=== PATIENT | female | born 2000 ===

== ENCOUNTER 2021-05-08 15:03 | Outpatient (CLI) | payer OTHER ==
[2021-05-08 17:48] LABS: BASOPHILS % (AUTO) 0.2 %; EOSINOPHILS # (AUTO) 0.1 10^3/uL (0.0-0.7); EOSINOPHILS % (AUTO) 1.8 %; HCT - HEMATOCRIT 42.6 % (37.0-47.0); HGB - HEMOGLOBIN 13.1 g/dL (12.0-16.0); LYMPHOCYTES # (AUTO) 1.3 10^3/uL (1.5-3.5); LYMPHOCYTES % (AUTO) 28.3 %; MEAN CORPUSCULAR HEMOGLOBIN 27.1 pg (27.0-31.0); MEAN CORPUSCULAR HGB CONC 30.8 g/dL (32.0-36.0); MEAN CORPUSCULAR VOLUME 88.2 fL (81.0-99.0); MEAN PLATELET VOLUME 10.3 fL (7.9-10.8); MONOCYTES # (AUTO) 0.5 10^3/uL (0.0-1.0); NEUTROPHILS # (AUTO) 2.7 10^3/uL (1.5-6.6); NEUTROPHILS % (AUTO) 59.5 %; PLT - PLATELET COUNT 267 10^3/uL (130-450); RED BLOOD COUNT 4.83 10^6/uL (4.20-5.40); RED CELL DISTRIBUTION WIDTH 12.6 % (12.0-15.0); WHITE BLOOD COUNT 4.5 x10^3/uL (4.8-10.8)
[2021-05-08 18:03] LABS: ALBUMIN 4.1 g/dL (3.2-5.5); ALBUMIN/GLOBULIN RATIO 1.2 (1.0-2.2); BILIRUBIN,TOTAL 0.6 mg/dL (0.2-1.0); CALCIUM 8.9 mg/dL (8.5-10.3); POTASSIUM 3.9 mmol/L (3.5-5.0); TOTAL PROTEIN 7.5 g/dL (6.7-8.2)
[2021-05-08 18:13] LABS: CREATININE 0.8 mg/dL (0.4-1.0)
[2021-05-08 18:22] LABS: HCG,QUALITATIVE BLOOD NEGATIVE
[2021-05-08 18:44] LABS: BILIRUBIN,URINE NEGATIVE (NEGATIVE); GLUCOSE, URINE (UA) NEGATIVE (NEGATIVE); KETONES,URINE (UA) NEGATIVE (NEGATIVE); LEUKOCYTE ESTERASE, URINE NEGATIVE (NEGATIVE); NITRITE,URINE NEGATIVE (NEGATIVE); OCCULT BLOOD,URINE NEGATIVE (NEGATIVE); PROTEIN,URINE NEGATIVE (NEGATIVE); UROBILINOGEN,URINE 0.2 (NORMAL) E.U./dL (NORMAL)
[2021-05-08 18:46] LABS: CLARITY,URINE CLEAR (CLEAR)
[2021-05-08 19:05] LABS: BACTERIA,URINE Rare /HPF (None Seen); RBC,URINE 0-5 /HPF (0-5); SQUAMOUS EPITHELIAL CELL,UR FEW Squamous (<= Few); WBC,URINE 0-3 /HPF (0-5)
== END 2021-05-08 23:59 | disposition home or self-care (01) ==
LOC: LAB.R 15:03
PROVIDERS: ATTEND Nurse Practitioner
DX: R10.9 Unspecified abdominal pain (principal)
CPT/HCPCS: 80053; 81001; 82150; 83690; 84703; 85025; 87086

== ENCOUNTER 2024-06-17 19:13 | Inpatient (IN) | payer OTHER ==
[2024-06-17] MEDS ORDERED: SODIUM CHLORIDE FLUSH 0.9% 10 ML SYRINGE IVP PRN (20:59)
[2024-06-17] MEDS ORDERED: miSOPROStoL 200 MCG TABLET BC PRN (20:59)
[2024-06-17] MEDS ORDERED: ONDANSETRON ODT 4 MG TABLET PO PRN (20:59)
[2024-06-17] MEDS ORDERED: NIFEdipine 10 MG CAPSULE PO PRN (20:59)
[2024-06-17] MEDS ORDERED: CARBOPROST TROMETHAMINE 250 MCG/ML VIAL IM PRN (20:59)
[2024-06-17] MEDS ORDERED: IBUPROFEN 600 MG TABLET PO PRN (20:59)
[2024-06-17] MEDS ORDERED: TERBUTALINE 1 MG/ML VIAL SUBQ PRN (20:59)
[2024-06-17] MEDS ORDERED: OXYTOCIN 10 UNIT/ML VIAL IM PRN (20:59)
[2024-06-17] MEDS ORDERED: hydrALAZINE INJ 20 MG/ML VIAL IVP PRN ×2 (20:59)
[2024-06-17] MEDS ORDERED: lidocaine 1% 20 ML MDV ID PRN (20:59)
[2024-06-17] MEDS ORDERED: diphenhydrAMINE INJ 50 MG/ML VIAL IVP PRN (20:59)
[2024-06-17] MEDS ORDERED: TRANEXAMIC ACID IN NACL 1,000 MG/100 ML BAG IV PRN (20:59)
[2024-06-17] MEDS ORDERED: METOCLOPRAMIDE 10 MG/2 ML VIAL IVP PRN (20:59)
[2024-06-17] MEDS ORDERED: miSOPROStoL 200 MCG TABLET PR PRN (20:59)
[2024-06-17] MEDS ORDERED: METHYLERGONOVINE 0.2 MG/ML VIAL IM PRN (20:59)
[2024-06-17] MEDS ORDERED: LABETALOL 20 MG/4 ML SYRINGE IVP PRN ×3 (20:59)
[2024-06-17] MEDS ORDERED: fentaNYL 100 MCG/2 ML VIAL IVP PRN (20:59)
[2024-06-17] MEDS ORDERED: OXYTOCIN/SODIUM CHLORIDE 500 ML IV PRN (20:59)
[2024-06-17] MEDS ORDERED: SODIUM CHLORIDE FLUSH 0.9% 10 ML SYRINGE IVP SCH (21:00)
[2024-06-17] MEDS: LACTATED RINGERS 1,000 ML IV PRN (21:20)
[2024-06-17 21:42] LABS: BASOPHILS % (AUTO) 0.2 %; EOSINOPHILS # (AUTO) 0.1 10^3/uL (0.0-0.7); EOSINOPHILS % (AUTO) 0.5 %; HCT - HEMATOCRIT 35.8 % (37.0-47.0); HGB - HEMOGLOBIN 11.1 g/dL (12.0-16.0); LYMPHOCYTES # (AUTO) 1.6 10^3/uL (1.5-3.5); LYMPHOCYTES % (AUTO) 12.1 %; MEAN CORPUSCULAR HEMOGLOBIN 26.1 pg (27.0-31.0); MEAN PLATELET VOLUME 9.5 fL (7.9-10.8); MONOCYTES # (AUTO) 1.3 10^3/uL (0.0-1.0); MONOCYTES % (AUTO) 9.8 %; NEUTROPHILS % (AUTO) 76.9 %; PLT - PLATELET COUNT 251 10^3/uL (130-450); RED BLOOD COUNT 4.26 10^6/uL (4.20-5.40); RED CELL DISTRIBUTION WIDTH 15.4 % (12.0-15.0)
[2024-06-17] MEDS ORDERED: ROPIVACAINE 0.2% 200 MG/100 ML BAG EP ONE (21:46)
[2024-06-17] MEDS ORDERED: LIDOCAINE 2%-EPI 1:100000 20 ML MDV ONE (21:50)
[2024-06-17 21:58] LABS: ALBUMIN 3.7 g/dL (3.2-5.5); ALBUMIN/GLOBULIN RATIO 1.2 (1.0-2.2); BILIRUBIN,TOTAL 0.2 mg/dL (0.2-1.0); CALCIUM 9.9 mg/dL (8.5-10.3); CREATININE 0.7 mg/dL (0.6-1.3); POTASSIUM 3.7 mmol/L (3.5-4.5); TOTAL PROTEIN 6.7 g/dL (6.4-8.9)
--- NOTE | 2024-06-17 22:00 | HISTORY & PHYSICAL EXAMINATION ---
Admit History - Visit Reason Visit Reason: Contractions - : 2 Parity: 0 Premature: 0 Ectopic: 0 : sab Care: positive: Other ([facility], [facility] is on divert) Risk/History: positive: Other (low risk . 1 hr glucose is 139. weight gain from 11 weeks is 48 pounds.) Complications This : positive: None - Mother's Labs Mother's Blood Type: positive: Unknown Mother's RH: positive: Unknown GBS: positive: Group B Step Negative Rubella Status: positive: Immune - Other Maternal History Other Maternal History: no medical problems only surgery is wisdom teeth. care with [facility] from 11 weeks. dating sure LMP within 1 week of 11 week scan. normal 20 week scan. bp today at visit mildly elevated, labs normal. 142/80, 144/80. no symptoms. membranes swept today. cervix 1/75/-3 1 sab very early to [place]. he is [employer]. She is [employer]. here with him and her mom. They are all from [place]. was anemic and took iron. normal today earlier. - HPI Current EDU 06/15/24 Gestation 40 Weeks and 2 Days 2 Para 0 Vital Signs Temperature 98.7 F 06/17/24 19:22 Temperature 98.7 F 06/17/24 19:27 Heart Rate 100 06/17/24 19:27 Respiratory Rate 14 06/17/24 19:27 Blood Pressure 137/82 H 06/17/24 19:27 O2 Saturation If not protocol: Oxygen Flow, liters/minute - NST Procedure NST Procedure Start Date 06/17/24 Start Time 19:18 Stop Time 19:45 Vibroacoustic Stimulation Used No Patient States Movement Yes Review of Systems - Constitutional Constitutional: denies: Fever - Cardiovascular Cariovascular: denies: Irregular heart rate - Respiratory Respiratory: denies: Cough - Gastrointestinal Gastrointestinal: denies: Vomiting - Neurological Neurological: denies: Headache Physical - Abdominal Exam Vital Signs: Temp Pulse Resp BP Pulse Ox O2 Flow Rate 98.7 F 100 14 137/82 H 06/17/24 19:27 06/17/24 19:27 06/17/24 19:27 06/17/24 19:27 Contraction Frequency (min/apart): q4 Contraction Intensity: positive: Moderate Uterine Resting Tone: positive: Soft - Monitoring Strip Review: positive: Category I - Presentation Presentation: positive: Vertex - Vaginal Exam Dilation (in cm): 4 Effacement (%): 90 Station: positive: -2 Cervical Position: positive: Midposition (per RN Jigna) - Speculum Exam Speculum Exam Performed: positive: No - Other Notes Labor Progress Note/Additional Text: came in to triage and changed from 3 to 4 cm. ready to stay and have her baby. wishes epidural. Plan for Labor - Plan For Labor I expect patient to be DC'd or transferred within 96 hours.: Yes Plan for Labor: term in spontaneous early active labor. epidural being placed now. gbs neg. only concerns are 48 pound weight gain and 1 hr glucose of 139. growth scan in April%ile per notes. only medications are vitamins. was not asked to take aspirin. gbs negative. will augment labor with pitocin as needed. I will check her and possible AROM when she is comfortable. anticipate sometime tomorrow.
[2024-06-17] MEDS ORDERED: SODIUM CHLORIDE 0.9% 10 ML VIAL IVP ONE ×2 (22:14→22:30)
[2024-06-17] MEDS ORDERED: fentaNYL 100 MCG/2 ML VIAL ONE (22:14)
[2024-06-17] MEDS ORDERED: NALOXONE 0.4 MG/ML VIAL IVP PRN (22:24)
[2024-06-17] MEDS ORDERED: ROPIVACAINE 0.2% 200 MG/100 ML BAG EP PRN (22:24)
[2024-06-17] MEDS ORDERED: ePHEDrine 50 MG/ML VIAL IVP PRN (22:24)
--- NOTE | 2024-06-17 22:26 | ANESTHESIA ---
Pre-Anesthesia VS, & Labs - Diagnosis active labor - Procedure vaginal delivery Vital Signs: Temp Pulse Resp BP Pulse Ox O2 Flow Rate 37.1 C 100 14 137/82 H 06/17/24 19:27 06/17/24 19:27 06/17/24 19:27 06/17/24 19:27 Height: 5 ft 7 in Weight (kg): 107.048 kg Body Mass Index: 36.9 BMI Classification: Obese - NPO Last Fluid Intake: clear liquids - Is Patient ?: Yes - Lab Results Current Lab Results: Laboratory Tests 06/17/24 21:20: Sodium 136, Potassium 3.7, Chloride 106, Carbon Dioxide 20 L, Anion Gap 10.0, BUN 9, Creatinine 0.7, Estimated GFR (MDRD) 104, Glucose 79, Calcium 9.9, Total Bilirubin 0.2, AST 19, ALT 15, Alkaline Phosphatase 163 H, Total Protein 6.7, Albumin 3.7, Globulin 3.0, Albumin/Globulin Ratio 1.2 06/17/24 21:20: WBC 13.0 H, RBC 4.26, Hgb 11.1 L, Hct 35.8 L, MCV 84.0, MCH 26.1 L, MCHC 31.0 L, RDW 15.4 H, Plt Count 251, MPV 9.5, Neut # (Auto) 10.0 H, Lymph # (Auto) 1.6, [place] # (Auto) 1.3 H, Eos # (Auto) 0.1, Baso # (Auto) 0.0, Absolute Nucleated RBC 0.00, Nucleated RBC % 0.0 Lab results reviewed: Yes Fish Bones: 06/17/24 21:20 06/17/24 21:20 Home Medications and Allergies Active Medications Acetaminophen (Acetaminophen 500 Mg Tablet) 1,000 mg PO Q8H PRN PRN Reason: Mild Pain or Fever>38C(100.4F) Carboprost Tromethamine (Carboprost Tromethamine 250 Mcg/Ml Vial) 250 mcg IM .ONCE PRN PRN Reason: Hemorrhage Diphenhydramine HCl (Diphenhydramine Inj 50 Mg/Ml Vial) 25 mg IVP Q6H PRN PRN Reason: Allergy Symptoms Famotidine (Famotidine 20 Mg/2 Ml Vial) 20 mg IVP DAILY RODRIGO Fentanyl (Fentanyl 100 Mcg/2 Ml Vial) 50 mcg IVP Q1H PRN PRN Reason: Severe Pain (score 7-10) Hydralazine HCl (Hydralazine Inj 20 Mg/Ml Vial) 5 - 10 mg IVP Q20M PRN; Protocol PRN Reason: SBP> or= 160 OR DBP> or= 110 Hydralazine HCl (Hydralazine Inj 20 Mg/Ml Vial) 10 mg IVP .ONCE PRN; Protocol PRN Reason: SBP> or= 160 OR DBP> or= 110 Lactated Ringer's (Lr) 500 mls @ 999 mls/hr IV PRN PRN PRN Reason: Abdominal Pain Last Admin: 06/17/24 21:20 Dose: 999 mls/hr Oxytocin/Sodium Chloride (Pitocin/Sodium Chloride) 500 mls @ 999 mls/hr IV PRN PRN; Protocol PRN Reason: POST- HEMORR PREVENTION Tranexamic Acid (Tranexamic 1,000 Mg/100ml-Nacl) 1,000 mg in 100 mls @ 600 mls/hr IV Q30M PRN PRN Reason: EBL >1200mL and within 3hr Ibuprofen (Ibuprofen 600 Mg Tablet) 600 mg PO Q8HR PRN PRN Reason: Moderate Pain (Level 4-6) Labetalol HCl (Labetalol 20 Mg/4 Ml Syringe) 20 - 80 mg IVP Q10M PRN; Protocol PRN Reason: SBP> or= 160 OR DBP> or= 110 Labetalol HCl (Labetalol 20 Mg/4 Ml Syringe) 20 mg IVP .ONCE PRN; Protocol PRN Reason: SBP> or= 160 OR DBP> or= 110 Labetalol HCl (Labetalol 20 Mg/4 Ml Syringe) 20 - 40 mg IVP Q10M PRN; Protocol PRN Reason: SBP> or= 160 OR DBP> or= 110 Lidocaine HCl (Lidocaine 1% 20 Ml Mdv) 20 ml ID .ONCE PRN PRN Reason: PERINEAL REPAIR Stop: 06/20/24 20:59 Methylergonovine Maleate (Methylergonovine 0.2 Mg/Ml Vial) 0.2 mg IM .ONCE PRN PRN Reason: Hemorrhage Metoclopramide HCl (Metoclopramide 10 Mg/2 Ml Vial) 5 mg IVP Q6HR PRN PRN Reason: Nausea / Vomiting Misoprostol (Misoprostol 200 Mcg Tablet) 600 mcg BC .ONCE PRN PRN Reason: Hemorrhage Misoprostol (Misoprostol 200 Mcg Tablet) 800 mcg TN .ONCE PRN PRN Reason: Hemorrhage Nifedipine (Nifedipine 10 Mg Capsule) 10 - 20 mg PO Q20M PRN; Protocol PRN Reason: SBP> or= 160 OR DBP> or= 110 Ondansetron HCl (Ondansetron Odt 4 Mg Tablet) 4 mg PO Q4HR PRN PRN Reason: Nausea / Vomiting Ondansetron HCl (Ondansetron 4 Mg/2 Ml Vial) 4 mg IVP PRN PRN PRN Reason: Nausea / Vomiting Oxytocin (Oxytocin 10 Unit/Ml Vial) 10 unit IM .ONCE PRN PRN Reason: Step One if no IV access. Sodium Chloride (Sodium Chloride Flush 0.9% 10 Ml Syringe) 10 ml IVP PRN PRN PRN Reason: NEEDED PER PROVIDER ORDERS Sodium Chloride (Sodium Chloride Flush 0.9% 10 Ml Syringe) 10 ml IVP Q8H RODRIGO Terbutaline Sulfate (Terbutaline 1 Mg/Ml Vial) 0.25 mg SUBQ .ONCE PRN PRN Reason: Tachystole Allergies/Adverse Reactions: Allergies Allergy/AdvReac Type Severity Reaction Status Date / Time No Known Drug Allergies Allergy Verified 06/17/24 22:25 Anes History & Medical History - Anesthetic History Family history of Anesthesia Complications: Denies Family history of Malignant Hyperthermia: Denies - Medical History Cardiovascular: reports: None Pulmonary: reports: None Gastrointestinal: reports: None Urinary: reports: None Neuro: reports: None Musculoskeletal: reports: Scoliosis Endocrine/Autoimmune: reports: None Blood Disorders: reports: None Skin: reports: None Smoking Status: Never smoker Psychosocial: reports: No issues indicated History of Cancer?: No - Obstetrical History : 2 Parity: 0 Events: reports: Other (low risk . 1 hr glucose is 139. weight gain from 11 weeks is 48 pounds.) Complications: reports: None Exam General: Alert, Oriented x3, Cooperative, No acute distress Dental: WNL Mouth Openin Fingerbreadth Neck Mobility: Normal Mallampati classification: II Thyromental Distance: 4-6 cm Mental/Cognitive Status: Alert/Oriented X3, Normal for patient Plan Anesthesia Type: Epidural Consent for Procedure(s) Verified and Reviewed: Yes Code Status: Attempt Resuscitation ASA classification: 2-Mild systemic disease Is this case an emergency?: No
--- NOTE | 2024-06-17 22:52 | PROVIDER PROGRESS NOTE ---
Labor Progress Note - Uterine Monitoring Uterine Monitoring Mode: positive: External toco Contraction Frequency (min/apart): q3 Contraction Intensity: positive: Moderate Uterine Resting Tone: positive: Soft - Monitoring Monitor Mode: positive: External ultrasound Heart Rate Variability: positive: Moderate (6-25 bmp) Accelerations: positive: Present, 15x15 Decelerations: positive: None Strip Review: positive: Category I - Vaginal Exam Dilation (in cm): 6 Effacement (%): 100 Station: -1 Cervical Position: Midposition - Labor Progress Note Labor Progress Note/Additional Text: comfortable with epidural now. seems her water is broken and maybe was leaking when she came in. not clear. Ultrasound done to confirm baby is vertex. she is and occiput transverse. vaginal opening on the small side but overall pelvis feels adequate. EFW 7.5 to 8 #. encouraged them to rest and hopefully will awaken ready to push.
[2024-06-17] MEDS: LACTATED RINGERS 1,000 ML IV SCH (23:00)
[2024-06-17 23:42] LABS: CREATININE,URINE 228.2 mg/dL; PROTEIN/CREATININE RATIO,URINE 0.4 (<=0.2)
[2024-06-18] MEDS: ONDANSETRON 4 MG/2 ML VIAL IVP PRN (01:53)
[2024-06-18] MEDS: ROPIVACAINE 0.2% 200 MG/100 ML BAG EP PRN (04:09)
[2024-06-18] MEDS ORDERED: fentaNYL 100 MCG/2 ML VIAL ONE (06:54)
[2024-06-18] MEDS ORDERED: LIDOCAINE-PF 2% 10 ML AMP SUBQ ONE (06:55)
[2024-06-18] MEDS ORDERED: ROPIVACAINE 0.2% 200 MG/100 ML BAG EP PRN (07:27)
--- NOTE | 2024-06-18 07:27 | ANESTHESIA PROCEDURE NOTE ---
Anesthesia Epidural Template - Patient Report Patient Reports: positive: Inadequate control - Plan Plan: positive: Other - Other Comments Other Comments: Patient uncomfortable with contractions. Epidural bolus given with 5ml 2% lidocaine and 100mcg fentanyl. Epidural settings changed to 10ml/hr with 6ml pcea q 10mins.
--- NOTE | 2024-06-18 08:38 | HISTORY & PHYSICAL EXAMINATION ---
HPI - Admitted From Admitted from: OB - History Obtained From Records Reviewed: RN notes reviewed History obtained from: Patient - History of Present Illness Pain/Problem Location Description: very painful with contractions. not able to get comfortable with epidural. HPI Comment/Other: labored all night and still has cervix at a rim. PMH/PSH - Past Medical History Cardiovascular: positive: None Respiratory: positive: None Neuro: positive: None Endocrine/Autoimmune: positive: None GI: positive: None : positive: None Musculoskeletal: positive: Scoliosis Derm: positive: None Social & Family Hx - Social History Smoking Status: Never smoker Meds/Allgy - Allergies Allergies/Adverse Reactions: Allergies Allergy/AdvReac Type Severity Reaction Status Date / Time No Known Drug Allergies Allergy Verified 06/17/24 22:25 Review of Systems - Constitutional Constitutional: reports: Fatigue - Other Findings Other Findings: very painful with contractions. no shortness of breath or chest pain Exam - Physical Exam Comments/Other: cervix with small lip of cervix more on right. pelvis feels very small. Results - Lab Results Fish Bones: 06/17/24 21:20 06/17/24 21:20 Other Lab Results: Lab Results x24hrs 06/17/24 06/17/24 06/17/24 Range/Units 23:00 22:10 21:20 WBC (4.8-10.8) x10^3/uL RBC (4.20-5.40) 10^6/uL Hgb (12.0-16.0) g/dL Hct (37.0-47.0) % MCV (81.0-99.0) fL MCH (27.0-31.0) pg MCHC (32.0-36.0) g/dL RDW (12.0-15.0) % Plt Count (130-450) 10^3/uL MPV (7.9-10.8) fL Neut # (Auto) (1.5-6.6) 10^3/uL Lymph # (Auto) (1.5-3.5) 10^3/uL Talbot # (Auto) (0.0-1.0) 10^3/uL Eos # (Auto) (0.0-0.7) 10^3/uL Baso # (Auto) (0.0-0.1) 10^3/uL Absolute Nucleated RBC x10^3/uL Nucleated RBC % /100WBC Sodium 136 (135-145) mmol/L Potassium 3.7 (3.5-4.5) mmol/L Chloride 106 (101-111) mmol/L Carbon Dioxide 20 L (21-32) mmol/L Anion Gap 10.0 (6-13) BUN 9 (6-20) mg/dL Creatinine 0.7 (0.6-1.3) mg/dL Estimated GFR (MDRD) 104 (>89) Glucose 79 (74-104) mg/dL Calcium 9.9 (8.5-10.3) mg/dL Total Bilirubin 0.2 (0.2-1.0) mg/dL AST 19 (10-42) IU/L ALT 15 (10-60) IU/L Alkaline Phosphatase 163 H (42-121) IU/L Total Protein 6.7 (6.4-8.9) g/dL Albumin 3.7 (3.2-5.5) g/dL Globulin 3.0 (2.1-4.2) g/dL Albumin/Globulin Ratio 1.2 (1.0-2.2) Urine Creatinine 228.2 mg/dL Ur Total Protein Timed 90 mg/dL Protein/Creatinin Ratio 0.4 H (<=0.2) Blood Type Blood Type Recheck A POSITIVE Antibody Screen 06/17/24 06/17/24 Range/Units 21:20 21:20 WBC 13.0 H (4.8-10.8) x10^3/uL RBC 4.26 (4.20-5.40) 10^6/uL Hgb 11.1 L (12.0-16.0) g/dL Hct 35.8 L (37.0-47.0) % MCV 84.0 (81.0-99.0) fL MCH 26.1 L (27.0-31.0) pg MCHC 31.0 L (32.0-36.0) g/dL RDW 15.4 H (12.0-15.0) % Plt Count 251 (130-450) 10^3/uL MPV 9.5 (7.9-10.8) fL Neut # (Auto) 10.0 H (1.5-6.6) 10^3/uL Lymph # (Auto) 1.6 (1.5-3.5) 10^3/uL Talbot # (Auto) 1.3 H (0.0-1.0) 10^3/uL Eos # (Auto) 0.1 (0.0-0.7) 10^3/uL Baso # (Auto) 0.0 (0.0-0.1) 10^3/uL Absolute Nucleated RBC 0.00 x10^3/uL Nucleated RBC % 0.0 /100WBC Sodium (135-145) mmol/L Potassium (3.5-4.5) mmol/L Chloride (101-111) mmol/L Carbon Dioxide (21-32) mmol/L Anion Gap (6-13) BUN (6-20) mg/dL Creatinine (0.6-1.3) mg/dL Estimated GFR (MDRD) (>89) Glucose (74-104) mg/dL Calcium (8.5-10.3) mg/dL Total Bilirubin (0.2-1.0) mg/dL AST (10-42) IU/L ALT (10-60) IU/L Alkaline Phosphatase (42-121) IU/L Total Protein (6.4-8.9) g/dL Albumin (3.2-5.5) g/dL Globulin (2.1-4.2) g/dL Albumin/Globulin Ratio (1.0-2.2) Urine Creatinine mg/dL Ur Total Protein Timed mg/dL Protein/Creatinin Ratio (<=0.2) Blood Type A POSITIVE Blood Type Recheck Antibody Screen NEGATIVE Impression/Plan - Problem List Problem List: failure to progress in labor. very painful so likely baby is not fitting thru her pelvis. could augment with pitocin or proceed with c section. Augmentation will cause more discomfort and we are having a very hard time controlling that. offered c section and patient agrees. does not want more pain. risks and benefits discussed. consents signed. OR crew called. baby looks great still. no rogers. ROM now since about 11:30 yesterday. no signs of infection or meconium.
[2024-06-18] MEDS ORDERED: AZITHROMYCIN INJ 500 MG in SODIUM CHLORIDE 0.9% 250 ML IV ONE (08:41)
[2024-06-18] MEDS ORDERED: ceFAZolin (2G) 2 GM in SODIUM CHLORIDE 0.9% MINIBAG 100 ML IV ONE (08:41)
[2024-06-18] MEDS ORDERED: FAMOTIDINE 20 MG/2 ML VIAL IVP SCH (09:00)
[2024-06-18] MEDS ORDERED: miSOPROStoL 200 MCG TABLET ONE (09:05)
[2024-06-18] MEDS ORDERED: METHYLERGONOVINE 0.2 MG/ML VIAL ONE (09:05)
[2024-06-18] MEDS ORDERED: CARBOPROST TROMETHAMINE 250 MCG/ML VIAL IM ONE (09:05)
[2024-06-18] MEDS ORDERED: NALOXONE 0.4 MG/ML VIAL IVP PRN (09:59)
[2024-06-18] MEDS ORDERED: LABETALOL 20 MG/4 ML SYRINGE IVP PRN ×3 (09:59)
[2024-06-18] MEDS ORDERED: CALCIUM CARBONATE CHEW 500 MG TABLET PO PRN (09:59)
[2024-06-18] MEDS ORDERED: hydrALAZINE INJ 20 MG/ML VIAL IVP PRN ×2 (09:59)
[2024-06-18] MEDS ORDERED: OXYTOCIN/SODIUM CHLORIDE 500 ML IV PRN (09:59)
[2024-06-18] MEDS ORDERED: NIFEdipine 10 MG CAPSULE PO PRN (09:59)
--- NOTE | 2024-06-18 10:07 | OPERATIVE REPORT ---
Operative Report - General Admit Date: 06/17/24 Procedure Date: 06/18/24 Planned Procedure: primary low transverse c section Pre-Op Diagnosis: Cephalopelvic disproportion, arrest of dilation Procedure Performed: LTCS Post Op Diagnosis: same - Procedure Note Anesthesia Technique: Regional block (TAP block post op), Spinal Pathology: none Estimated Blood Loss (mL): 500 Urine Output (mL): 100 (bloody when catheter placed) Indications: Did not progress in labor normally. 6 cm at 2300. still with a cervical lip at 0800. very painful with epidural, not able to get comfortable, like baby is wedged in her pelvis. recommend c section, or could augment with pitocin. Patient wishes c section. Findings: Live female infants with vertex wedged into pelvis in right occiput posterior position. head was flexed. uterus tubes and ovaries were normal. placenta appeared normal. Complications: none - Other Other Information/Narrative: Patient was brought to the OR where spinal was given as epidural was not working well. She was prepped and draped normally. vaginal prep done. Ancef 2 grams and azithromycin 500 mg given. left tilt. SCDs on and working. time out done. anesthesia tested and found to be adequate. Pfanensteil type incision made wtih the knife and carried through to the fascia. Fascia transected bilaterally. Fascia elevated inferiorly and then superiorly and rectus muscles disected off. peritoneum entered high in the abdomen to avoid the bladder. insicion stretched. Isacc retractor placed and rolled down. uterus was quite pulled up around baby's head. Incision was made at what I sensed was the lower uterine segment, not the cervix. The incision was opened digitally up and down. I tried to put my hand in to deliver the baby's head but it was so wedged into the pelvis that I could not get around it to deliver. I tried to pull out the baby's feet and that was very difficult as well. Finally I was able to deliver baby and she was not breathing and had poor tone. cord was cut long and handed off to peds team. Placenta came out just after baby. Uterus was cleared of clots and debris. The uterine incision was examined. it was just at the top of the cervix. It was closed with running locked 0 Monocryl suture. 2nd horizontal imbricating layer was placed. uterus contracted well. Fascia was closed with 0 Vicryl suture. SubQ was closed with 3-0 Monocryl and skin was closed with 4-0 Monocryl in subcuticular fashion. steristrips and bandage placed. uterus expressed. TAP blocks placed by anesthesia and patient brought back to her room in stable condition.
[2024-06-18] MEDS: LACTATED RINGERS 200 ML IV ONE (10:21)
--- NOTE | 2024-06-18 12:35 | ANESTHESIA POST OP EVALUATION ---
Anesthesia Post Eval - Post Anesthesia Eval Vitals: Last Vital Signs Temp 36.9 C 06/18/24 11:15 Pulse 114 H 06/18/24 11:45 Resp 16 06/18/24 11:45 BP 136/75 H 06/18/24 11:45 Pulse Ox 96 06/18/24 11:45 O2 Flow Rate CV Function Including HR & BP: Stable Pain Control: Satisfactory Nausea & Vomiting: Negative Mental Status: Baseline Respiratory Status: Airway Patent Hydration Status: Satisfactory Anesthesia Complications: None
--- NOTE | 2024-06-18 14:14 | PHARMACY PROGRESS NOTE ---
- Best Possible Medication History Admit Date and Time: 06/17/242113 Processed by: Pharmacy As the person ultimately responsible for medication therapy, providers are able to order a medication from an existing home medication list in [facility] via the "Reconcile Routine" prior to Confirmation of that medication by academic support specialist. Such practice is discouraged except when the physician, in their clinical judgment, deems that a medical need exists for a medication without regard to previous use.
[2024-06-18] MEDS: KETOROLAC 30 MG/ML VIAL IVP SCH (15:57)
[2024-06-18] MEDS: ACETAMINOPHEN 500 MG TABLET PO SCH (18:37)
--- NOTE | 2024-06-18 21:47 | PROVIDER PROGRESS NOTE ---
Progress Note Doing well. sitting up in bed. trying to breast feed baby. no complaints.
[2024-06-18] MEDS: DOCUSATE SODIUM 100 MG CAPSULE PO SCH (22:26)
[2024-06-18] MEDS: ENOXAPARIN 40 MG/0.4 ML SYRINGE SUBQ SCH (22:26)
[2024-06-19] MEDS: ACETAMINOPHEN 500 MG TABLET PO PRN (07:04)
[2024-06-19] MEDS: oxyCODONE 5 MG TABLET PO PRN (07:04)
[2024-06-19] MEDS: IBUPROFEN 600 MG TABLET PO SCH (07:05)
[2024-06-19 07:22] LABS: ALBUMIN 3.2 g/dL (3.2-5.5); ALBUMIN/GLOBULIN RATIO 1.3 (1.0-2.2); BILIRUBIN,TOTAL 0.2 mg/dL (0.2-1.0); CALCIUM 9.1 mg/dL (8.5-10.3); CREATININE 0.7 mg/dL (0.6-1.3); HCT - HEMATOCRIT 29.8 % (37.0-47.0); HGB - HEMOGLOBIN 9.4 g/dL (12.0-16.0); MEAN CORPUSCULAR HEMOGLOBIN 26.9 pg (27.0-31.0); MEAN CORPUSCULAR HGB CONC 31.5 g/dL (32.0-36.0); MEAN CORPUSCULAR VOLUME 85.1 fL (81.0-99.0); MEAN PLATELET VOLUME 9.5 fL (7.9-10.8); POTASSIUM 4.2 mmol/L (3.5-4.5); RED BLOOD COUNT 3.5 10^6/uL (4.20-5.40); TOTAL PROTEIN 5.7 g/dL (6.4-8.9); WHITE BLOOD COUNT 17.2 x10^3/uL (4.8-10.8)
[2024-06-19] MEDS: SIMETHICONE CHEW 80 MG TABLET PO PRN (09:46)
[2024-06-19] MEDS: IRON DEXTRAN 1,000 MG in SODIUM CHLORIDE 0.9% 250 ML IV ONE (12:21)
[2024-06-19] MEDS: PRENATAL VITAMIN TABLET PO SCH (16:34)
--- NOTE | 2024-06-19 18:41 | PROVIDER PROGRESS NOTE ---
Subjective - General Admit Date: 06/17/24 Procedure Date: 06/18/24 Post Op Days: 1 Procedure Performed: low transverse c section - Review of Systems Wound/Incisions: positive: Healing well, Drainage (small amount now seems to have stopped). negative: Erythema General: positive: No symptoms Pulmonary: negative: Shortness of breath Cardiovascular: positive: No symptoms Gastrointestinal: positive: No symptoms Genitourinary: positive: No symptoms Psychiatric: positive: No symptoms Objective - Patient Data Vital Signs: Vital Signs x48h Temp Pulse Resp BP Pulse Ox 06/19/24 12:51 97.7 F 83 16 113/69 98 Weight: Weight 06/17/24 06/18/24 06/19/24 23:59 23:59 23:59 Weight (kg) 107.048 kg 107.048 kg Intake & Output: Intake and Output Totals x24h 06/17/24 06/18/24 06/19/24 23:59 23:59 23:59 Intake Total 500 2849 720 Output Total 1845 650 Balance 500 1004 70 - Lab Results Lab Results: 06/19/24 07:02 06/19/24 07:02 Other Lab Results: Lab Results x24hrs 06/19/24 06/19/24 Range/Units 07:02 07:02 WBC 17.2 H (4.8-10.8) x10^3/uL RBC 3.50 L (4.20-5.40) 10^6/uL Hgb 9.4 L (12.0-16.0) g/dL Hct 29.8 L (37.0-47.0) % MCV 85.1 (81.0-99.0) fL MCH 26.9 L (27.0-31.0) pg MCHC 31.5 L (32.0-36.0) g/dL RDW 16.0 H (12.0-15.0) % Plt Count 227 (130-450) 10^3/uL MPV 9.5 (7.9-10.8) fL Sodium 138 (135-145) mmol/L Potassium 4.2 (3.5-4.5) mmol/L Chloride 109 (101-111) mmol/L Carbon Dioxide 23 (21-32) mmol/L Anion Gap 6.0 (6-13) BUN 10 (6-20) mg/dL Creatinine 0.7 (0.6-1.3) mg/dL Estimated GFR (MDRD) 104 (>89) Glucose 80 (74-104) mg/dL Calcium 9.1 (8.5-10.3) mg/dL Total Bilirubin 0.2 (0.2-1.0) mg/dL AST 20 (10-42) IU/L ALT 15 (10-60) IU/L Alkaline Phosphatase 138 H (42-121) IU/L Total Protein 5.7 L (6.4-8.9) g/dL Albumin 3.2 (3.2-5.5) g/dL Globulin 2.5 (2.1-4.2) g/dL Albumin/Globulin Ratio 1.3 (1.0-2.2) - Current Medications Current Medications: Current Medications Generic Name Dose Route Start Last Admin Trade Name Freq PRN Reason Stop Dose Admin Acetaminophen 1,000 mg 06/17/24 20:59 06/19/24 07:04 Acetaminophen 500 Mg Tablet PO 1,000 mg Q8H PRN Administration Mild Pain or Fever>38C(100.4F) Acetaminophen 1,000 mg 06/18/24 10:00 06/19/24 16:35 Acetaminophen 500 Mg Tablet PO 1,000 mg Q8H RODRIGO Administration Docusate Sodium 200 mg 06/18/24 21:00 06/19/24 12:41 Docusate Sodium 100 Mg Capsule PO 200 mg BID RODRIGO Administration Enoxaparin Sodium 40 mg 06/18/24 23:00 06/18/24 22:26 Enoxaparin 40 Mg/0.4 Ml Syringe SUBQ 40 mg DAILY RODRIGO Administration Lactated Ringer's 500 mls @ 999 mls/hr 06/17/24 20:59 06/17/24 22:26 Lr IV Infused PRN PRN Infusion Abdominal Pain Lactated Ringer's 1,000 mls @ 125 mls/hr 06/17/24 23:00 06/18/24 14:16 Lr IV Infused .Q8H RODRIGO Infusion Ibuprofen 600 mg 06/19/24 06:00 06/19/24 18:26 Ibuprofen 600 Mg Tablet PO 600 mg Q6HR RODRIGO Administration Ondansetron HCl 4 mg 06/17/24 20:59 06/18/24 01:53 Ondansetron 4 Mg/2 Ml Vial IVP 4 mg PRN PRN Administration Nausea / Vomiting Oxycodone HCl 5 mg 06/18/24 09:59 06/19/24 12:41 Oxycodone 5 Mg Tablet PO 5 mg Q4HR PRN Administration Severe Pain 6 -10 Multivit/Folic Acid/Iron 1 tab 06/19/24 12:00 06/19/24 16:34 Vitamin Tablet PO 1 tab Q48H RODRIGO Administration Simethicone 80 mg 06/18/24 09:59 06/19/24 09:46 Simethicone Chew 80 Mg Tablet PO 80 mg TID PRN Administration Gas - Physical Exam Wound/Incisions: positive: Healing well General Appearance: positive: No acute distress Respiratory: positive: No respiratory distress Cardiovascular: positive: Regular rate & rhythm Abdomen: positive: Non-tender Extremities: positive: Non-tender, Pedal edema (small) Neurologic/Psychiatric: positive: Oriented x3 Impression/Plan - Problem List Problem List: s/p c section for CPD. difficult delivery. baby and mom doing well. walked, took shower. breast feeding. no concern. Acute post op anemia at 29%. 1 dose of Iv iron given 1000 mg. discharge tomorrow.
[2024-06-20 08:30] VITALS: BP 123/70; O2SAT 99
[2024-06-20] MEDS ORDERED: FERROUS SULFATE 325 MG TABLET PO SCH (09:00)
--- NOTE | 2024-06-20 09:52 | Discharge Plan ---
Discharge Plan Problem Reviewed?: Yes Disposition: Home, Self Care Condition: Good Diet: Regular Activity Restrictions: Activity as Tolerated Shower Restrictions: No Driving Restrictions: Yes (Drive when comfortable and not taking pain medications) Weight Bearing: Full Weight Instruction Topics: , Depression , No Smoking: If you smoke, Please STOP! Call for help. Follow-up with: Belinda Vo MD [Provider Admit Priv/Credential] -
--- NOTE | 2024-06-20 11:10 | DISCHARGE SUMMARY ---
"Discharge Summary Admit Date: 06/17/24 Discharge Date: 06/20/24 Discharging Provider: Renetta Dorman DO Code Status: Attempt Resuscitation Condition at Discharge: Good Discharge Disposition: 01 Home, Self Care Discharge Facility Name: [facility] - DIAGNOSES Admission Diagnoses: 23yo with IUP at 40.2w Preeclampsia - HPI History of Present Illness: 23yo at 40.2w admitted 06/17/24 for active labor, also preeclampsia. - CONSULTS | PROCEDURES Procedures: Primary section - HOSPITAL COURSE Hospital Course: 23yo at 40.2w admitted 06/17/24 for active labor, also preeclampsia. She progressed to 9cm but ultimately PCD for failure to dilate, CPD. Preeclampsia diagnosed on admission with BP 140/90s and PCR 0.4. She did not require antihypertensives and this improved after delivery. See operative report for details. She is recovering appropriately. Appropriate lochia. Ambulating, voiding. Tolerating regular diet. . Mood is good. Denies headache, visual changes. care at , uncomplicated. and postoperative care reviewed. Follow up this week for BP check. - ALLERGIES Allergies/Adverse Reactions: Allergies Allergy/AdvReac Type Severity Reaction Status Date / Time No Known Drug Allergies Allergy Verified 06/17/24 22:25 - MEDICATIONS Home Medications: Ambulatory Orders Medication Instructions Recorded Confirmed Ferrous Sulfate [Feosol] 325 mg PO UD 06/18/24 06/18/24 Vit No.180/Iron/Folic 1 tab PO UD 06/18/24 06/18/24 [ Plus Vitamin-Mineral] - PHYSICAL EXAM AT DISCHARGE General Appearance: positive: No acute distress Eyes Bilateral: positive: EOMI Neck: positive: Nml inspection Respiratory: positive: No respiratory distress Abdomen: positive: Other (Incision with steri strips, c/d/i) Skin: positive: Color nml Extremities: positive: Non-tender Neurologic/Psychiatric: positive: Oriented x3 - LABS Result Diagrams: 06/19/24 07:02 06/19/24 07:02 - QUALITY (Female Hip Fx Only) Was patient sent home on osteoporosis medication?: No - FOLLOW UP Follow Up: By 06/24 for BP check - TIME SPENT Time Spent in Discharge (Minutes): 25"
--- NOTE | 2024-06-20 11:30 | Labor Flowsheet ---
Labor Flowsheet Datetime Report Generated by CPN: 06/20/2024 11:30 Datetime: 06/18/2024 20:15 I/O Interventions: Jacob Discontinued (Annotations: 300ml clear yellow ) Datetime: 06/18/2024 08:39 Frequency (min): x1 Duration (sec): 60 Datetime: 06/18/2024 08:31 VITAL SIGNS NBP Sys/Dorothy/Mean (mmHg): 160 : 88 : 105 Pulse: 121 LaborFlag: Labor Datetime: 06/18/2024 08:21 Communication Comments: EFM adjusted during pre-op wipe completion. Datetime: 06/18/2024 08:04 Comments: pushing started Datetime: 06/18/2024 07:35 Monitor Interventions for UA: [place] Adjusted Datetime: 06/18/2024 07:34 VAGINAL EXAM Dilatation (cm): 10.0 Effacement (%): 100 Station: 0 Exam by: Herlinda Jerezlan, RN COMMUNICATION Communication: Call/Page Placed to Provider Provider Notified (Name): Dr. Vo Notification Reason: Labor Status Datetime: 06/18/2024 07:30 UTERINE ACTIVITY Monitor Mode: External Quality: Moderate Pattern: Normal: <= 5 Contractions in 10 Minutes Resting Tone (Palpate): Relaxed Contraction Comments: UTD contraction frequency and duration; RN adjusting TOCO for clear monitorin g. ASSESSMENT A Monitor Mode: External US FHR Baseline Rate : 145 Variability: Moderate 6-25 bpm Accelerations: 15X15 Decelerations: None Category: Category I Datetime: 06/18/2024 07:12 Temperature (C): 37.2 Datetime: 06/18/2024 06:58 Anesthesia Comments: COLLIERY CLERK at bedside for epidural bolus Datetime: 06/18/2024 06:30 Respirations: 16 Pain Assessment Comments: COLLIERY CLERK aware of breakthrough pain, en route to bedside to asses Datetime: 06/18/2024 06:14 PATIENT CARE Patient Position/Activity: Right Lateral Patient Care Comments: peanut, knees together/feet out Datetime: 06/18/2024 06:06 Nurse Giving Report: Jigna H RN Datetime: 06/18/2024 05:45 Pain Coping: Sleeping Datetime: 06/18/2024 05:27 Hygiene: Ana Care; Underpad Changed; Peripad Changed Datetime: 06/18/2024 04:30 FHR Baseline Changes: No Baseline Change Actions for Decelerations: Side to Side; Provider Notified Datetime: 06/18/2024 04:11 Vaginal Bleeding: Normal Show Datetime: 06/18/2024 04:00 Temperature Route: Oral Datetime: 06/18/2024 03:28 Monitor Interventions for FHR: Ultrasound Adjusted Datetime: 06/18/2024 02:15 Pain Presence: None/Denies Datetime: 06/18/2024 01:16 PAIN Pain Scale: 0 Datetime: 06/18/2024 00:00 ASSESSMENT B Category: Category I Datetime: 06/17/2024 22:50 Membranes Rupture Method: Spontaneous Amniotic Fluid Color: Clear Amniotic Fluid Amount: Small Amniotic Fluid Odor: Normal Membrane Comments: SROM 1130 06/17 Datetime: 06/17/2024 22:30 SpO2 (%): 100 Datetime: 06/17/2024 22:05 ANESTHESIA Epidural Procedure: Completed Datetime: 06/17/2024 21:59 PROCEDURE TIME OUT Procedure Verify: Correct Patient Identity; Correct Side and Site are Marked; Accurate Procedure Co nsent Form; Agreement on Procedure to be Done; Correct Patient Position; Relevant Images and Results are Properly Labeled and Displayed; Addressed Need to Administer Antibiotics or Fluids for Irrigation ; Safety Precautions Based on Patient History or Medication Use Datetime: 06/17/2024 21:16 Stage of : Labor Datetime: 06/17/2024 20:13 Membranes Ruptured Date/Time: 06/17/2024 11:30 Datetime: 06/17/2024 19:46 Cervix, Consistency: Moderate Cervix, Position: Midposition Datetime: 06/17/2024 19:30 MATERNAL ASSESSMENT Level of Consciousness: Alert DTR's/Clonus: DTRs 1+; No Clonus Headache: Denies Breath Sounds, Left: Clear and Equal Breath Sounds, Right: Clear and Equal Nausea/Vomiting: Denies RUQ Epigastric Pain: Denies
== END 2024-06-20 11:28 | disposition home or self-care (01) | DRG 788 ==
LOC: WFO 19:13 → FBP 19:15 → WFO 21:14 → FBP 21:15
PROVIDERS: ADMIT Obstetrics & Gynecology; ATTEND Obstetrics & Gynecology
PROC: 10D00Z1 Extraction of Products of Conception, Low, Open Approach (ICD-10-PCS; principal; 2024-06-18 09:00)
DX: O14.94 Unspecified pre-eclampsia, complicating childbirth (principal); O99.814 Abnormal glucose complicating childbirth; Z3A.40 40 weeks gestation of pregnancy; Z37.0 Single live birth; O26.00 Excessive weight gain in pregnancy, unspecified trimester; O90.81 Anemia of the puerperium; O62.1 Secondary uterine inertia
CPT/HCPCS: 36415; 59025; 80053; 82570; 84156; 85025; 85027; 86850; 86900; 86901; 99215; A9270; J1650; J1750; J7120